=== PATIENT | male | born 2000 | race Caucasian/White ===

== ENCOUNTER 2023-02-24 23:31 | Emergency (ER) | payer OTHER ==
[~2023-02-24] VITALS: Ht 177.8 cm; Wt 97.7 kg
[2023-02-24 23:34] VITALS: BP 134/85; TEMP 99
[2023-02-25] MEDS ORDERED: PREDNISONE20 MG PO ×2 (00:25)
[2023-02-25] MEDS ORDERED: VERIPRED 220 MG/5 ML PO (00:44)
[2023-02-25 00:53] VITALS: PULSE 78
== END 2023-02-25 00:55 | disposition home or self-care (01) ==
LOC: COL.ER 23:31
DX: G89.18 Other acute postprocedural pain (principal); R07.0 Pain in throat; H92.03 Otalgia, bilateral
CPT/HCPCS: J1100; J2270; J7030